=== PATIENT | female | born 1935 | race African-American/Black ===

== ENCOUNTER 2022-12-06 15:08 | Emergency (ER) | payer BC, MEDICARE ==
[~2022-12-06] VITALS: Ht 170.2 cm; Wt 95.3 kg
[2022-12-06 15:10] VITALS: BP 146/72
[2022-12-06] MEDS ORDERED: ACETAMINOPHEN 650MG/20.3ML UDC PO ONE (17:00)
== END 2022-12-06 18:53 | disposition home or self-care (01) ==
LOC: ER 15:08
DX: S80.212A Abrasion, left knee, initial encounter (principal); J45.909 Unspecified asthma, uncomplicated; Z88.0 Allergy status to penicillin; Z91.041 Radiographic dye allergy status; W17.89XA Other fall from one level to another, initial encounter; Y93.89 Activity, other specified; Y92.810 Car as the place of occurrence of the external cause
CPT/HCPCS: 29505; 73501; 73562; 99284; L1830